=== PATIENT | male | born 1965 | race Caucasian/White ===

== ENCOUNTER 2016-09-20 19:17 | Emergency (ER) | payer OTHER ==
[2016-09-20] MEDS ORDERED: NS 0.9% 1000 ML* 1,000 ML IV ONE (19:52)
[2016-09-20 20:14] LABS: Hematocrit 43 % (42-52); Hemoglobin 14.6 g/dl (14.0-18.0); Mean Corpuscular HGB Conc 34 g/dl (31-36); Mean Corpuscular Hemoglobin 29 pg (27-31); Mean Corpuscular Volume 86 fL (80-94); Mean Platelet Volume 8 um3 (7.4-10.4); Red Blood Count 5.05 10^6/ul (4.0-5.4); Red Cell Distribution Width 14 % (10.5-15); White Blood Count 8.4 10^3/ul (3.5-10.8)
--- NOTE | 2016-09-20 20:29 | RAD ---
INDICATION: Diaphoresis and left arm tingling COMPARISON: None. TECHNIQUE: Single AP portable view of the chest was obtained. FINDINGS: Image quality is compromised due to the relative inferiority of a portable chest x-ray. The heart and mediastinum exhibit normal size and contour. The lungs are grossly clear. There is no evidence of a large pleural effusion. Visualized bones are normal for the patient's age. IMPRESSION: No radiographic evidence for acute cardiopulmonary abnormality on this portable chest x-ray.
[2016-09-20 20:31] LABS: Albumin 4.1 g/dL (3.2-5.2); BUN/Creatinine Ratio 12.4 (8-20); C Reactive Protein 7.19 mg/L (< 5.00); EGFR African American 88.3 (>60); EGFR Non-African American 68.7 (>60); Globulin 2.9 g/dL (2-4); Magnesium 1.8 mg/dL (1.9-2.7); Total Bilirubin 0.4 mg/dL (0.2-1.0)
[2016-09-20 20:58] LABS: TSH (Thyroid Stimulating Horm) 1.79 mcIU/mL (0.34-5.60)
--- NOTE | 2016-09-20 21:51 | RAD ---
INDICATION: Headache COMPARISON: None. TECHNIQUE: Contiguous axial sections of the brain were obtained from the skull base to the vertex without contrast. FINDINGS: The ventricles, cisterns and sulci are within normal limits. The kong-white matter differentiation is adequately maintained and there is no sulcal effacement. No significant focal abnormality or mass effect is present. There is no evidence for intracranial hemorrhage. No significant focal osseous abnormality is present. The visualized portion of the paranasal sinuses and mastoid air cells appear clear. IMPRESSION: Normal CT of the brain.
--- NOTE | 2016-09-20 22:45 | ED ---
Abhishek Duran Billy, scribed for Srikanth Pimentel MD on 09/20/16 at 1948 . Headache - HPI Summary HPI Summary: Patient is a 51 year-old male coming to [facility] for evaluation of a sharp, left- sided headache. He states that his headache started after carrying some heavy boxes up a flight of stairs, and has not subsided since. It is intermittent but never completely resolves, and has in fact worsened in the last few days. Pain severity is 6/10 at this time. He denies any changes in mentation, weakness, difficulty with speech, or facial droop. Denies any neck pain. He has had some diaphoresis but denies chest pain, nausea, or shortness of breath. While he was at dinner today at 1830, he felt a "strange tingling" in his left arm and left leg. - History Of Current Complaint Chief Complaint: EDHeadache Stated Complaint: WORSENING HEADACHE Time Seen by Provider: 09/20/16 19:39 Hx Obtained From: Patient Onset/Duration: Gradual Onset, Started days ago Initially Headache Was: Moderate Currently Pain Is: Moderate Timing: Intermittent, Lasting: Character: Sharp Location of Headache: Frontal Aggravating Factor: Nothing Allevating Factors: Nothing - Allergies/Home Medications Allergies/Adverse Reactions: Allergies Allergy/AdvReac Type Severity Reaction Status Date / Time Penicillins [PCN] Allergy Difficulty Verified 09/20/16 20:11 Breathing PMH/Surg Hx/FS Hx/Imm Hx Endocrine/Hematology History: Reports: Hx Thyroid Disease - hypothyroidism Denies: Hx Diabetes Cardiovascular History: Denies: Hx Hypertension GI History: Reports: Hx Irritable Bowel Psychiatric History: Reports: Hx Anxiety Infectious Disease History: Denies: Traveled Outside the [place] in Last 30 Days - Family History Family History: Brother with CVA - Social History Alcohol Use: Rare Hx Substance Use: No Substance Use Type: Reports: None Review of Systems Positive: Skin Diaphoresis Negative: Photophobia, Blurred Vision, Diplopia Negative: Chest Pain Negative: Shortness Of Breath Negative: Nausea Negative: Myalgia, Edema Positive: Headache, Paresthesia. Negative: Weakness, Numbness, Slurred Speech All Other Systems Reviewed And Are Negative: Yes Physical Exam Triage Information Reviewed: Yes Vital Signs On Initial Exam: Initial Vitals Temp Pulse Resp BP Pulse Ox 98.2 F 78 18 142/90 99 09/20/16 19:29 09/20/16 19:29 09/20/16 19:29 09/20/16 19:29 09/20/16 19:29 Vital Signs Reviewed: Yes Appearance: Positive: Well-Appearing, No Pain Distress Skin: Positive: Warm, Skin Color Reflects Adequate Perfusion, Dry Head/Face: Positive: Normal Head/Face Inspection Eyes: Positive: EOMI, RADHA ENT: Positive: Normal ENT inspection Neck: Positive: Supple, Nontender Respiratory/Lung Sounds: Positive: Clear to Auscultation, Breath Sounds Present Cardiovascular: Positive: RRR Abdomen Description: Positive: Nontender, Soft Musculoskeletal: Positive: Normal, Strength/ROM Intact Neurological: Positive: Normal, Sensory/Motor Intact, Alert, Oriented to Person Place, Time Psychiatric: Positive: Anxious Diagnostics - Vital Signs Vital Signs Temp Pulse Resp BP Pulse Ox 09/20/16 19:29 98.2 F 78 18 142/90 99 - Laboratory Lab Results: Lab Results 09/20/16 09/20/16 09/20/16 Range/Units 20:04 20:04 20:04 WBC 8.4 (3.5-10.8) 10^3/ul RBC 5.05 (4.0-5.4) 10^6/ul Hgb 14.6 (14.0-18.0) g/dl Hct 43 (42-52) % MCV 86 (80-94) fL MCH 29 (27-31) pg MCHC 34 (31-36) g/dl RDW 14 (10.5-15) % Plt Count 228 (150-450) 10^3/ul MPV 8 (7.4-10.4) um3 Neut % (Auto) 68.1 (38-83) % Lymph % (Auto) 23.2 L (25-47) % Lancaster % (Auto) 4.8 (1-9) % Eos % (Auto) 2.7 (0-6) % Baso % (Auto) 1.2 (0-2) % Absolute Neuts (auto) 5.7 (1.5-7.7) 10^3/ul Absolute Lymphs (auto) 2.0 (1.0-4.8) 10^3/ul Absolute Monos (auto) 0.4 (0-0.8) 10^3/ul Absolute Eos (auto) 0.2 (0-0.6) 10^3/ul Absolute Basos (auto) 0.1 (0-0.2) 10^3/ul Absolute Nucleated RBC 0.01 10^3/ul Nucleated RBC % 0.1 INR (Anticoag Therapy) 0.92 (0.89-1.11) APTT 30.9 (26.0-36.3) seconds D-Dimer, Quantitative < 200 (Less Than 230) ng/mL Sodium 136 (133-145) mmol/L Potassium 4.0 (3.5-5.0) mmol/L Chloride 105 (101-111) mmol/L Carbon Dioxide 23 (22-32) mmol/L Anion Gap 8 (2-11) mmol/L BUN 14 (6-24) mg/dL Creatinine 1.13 (0.67-1.17) mg/dL Est GFR ( Amer) 88.3 (>60) Est GFR (Non-Af Amer) 68.7 (>60) BUN/Creatinine Ratio 12.4 (8-20) Glucose 114 H (70-100) mg/dL Lactic Acid (0.5-2.0) mmol/L Calcium 9.0 (8.6-10.3) mg/dL Magnesium 1.8 L (1.9-2.7) mg/dL Total Bilirubin 0.40 (0.2-1.0) mg/dL AST 32 (13-39) U/L ALT 37 (7-52) U/L Alkaline Phosphatase 45 (34-104) U/L Total Creatine Kinase 299 H (10-223) U/L CK-MB (CK-2) 6.5 H (0.6-6.3) ng/mL Troponin I 0.00 (<0.04) ng/mL C-Reactive Protein 7.19 H (< 5.00) mg/L Total Protein 7.0 (6.4-8.9) g/dL Albumin 4.1 (3.2-5.2) g/dL Globulin 2.9 (2-4) g/dL Albumin/Globulin Ratio 1.4 (1-3) Lipase 10 L (11.0-82.0) U/L TSH 1.79 (0.34-5.60) mcIU/mL 09/20/16 Range/Units 20:04 WBC (3.5-10.8) 10^3/ul RBC (4.0-5.4) 10^6/ul Hgb (14.0-18.0) g/dl Hct (42-52) % MCV (80-94) fL MCH (27-31) pg MCHC (31-36) g/dl RDW (10.5-15) % Plt Count (150-450) 10^3/ul MPV (7.4-10.4) um3 Neut % (Auto) (38-83) % Lymph % (Auto) (25-47) % Lancaster % (Auto) (1-9) % Eos % (Auto) (0-6) % Baso % (Auto) (0-2) % Absolute Neuts (auto) (1.5-7.7) 10^3/ul Absolute Lymphs (auto) (1.0-4.8) 10^3/ul Absolute Monos (auto) (0-0.8) 10^3/ul Absolute Eos (auto) (0-0.6) 10^3/ul Absolute Basos (auto) (0-0.2) 10^3/ul Absolute Nucleated RBC 10^3/ul Nucleated RBC % INR (Anticoag Therapy) (0.89-1.11) APTT (26.0-36.3) seconds D-Dimer, Quantitative (Less Than 230) ng/mL Sodium (133-145) mmol/L Potassium (3.5-5.0) mmol/L Chloride (101-111) mmol/L Carbon Dioxide (22-32) mmol/L Anion Gap (2-11) mmol/L BUN (6-24) mg/dL Creatinine (0.67-1.17) mg/dL Est GFR ( Amer) (>60) Est GFR (Non-Af Amer) (>60) BUN/Creatinine Ratio (8-20) Glucose (70-100) mg/dL Lactic Acid 1.1 (0.5-2.0) mmol/L Calcium (8.6-10.3) mg/dL Magnesium (1.9-2.7) mg/dL Total Bilirubin (0.2-1.0) mg/dL AST (13-39) U/L ALT (7-52) U/L Alkaline Phosphatase (34-104) U/L Total Creatine Kinase (10-223) U/L CK-MB (CK-2) (0.6-6.3) ng/mL Troponin I (<0.04) ng/mL C-Reactive Protein (< 5.00) mg/L Total Protein (6.4-8.9) g/dL Albumin (3.2-5.2) g/dL Globulin (2-4) g/dL Albumin/Globulin Ratio (1-3) Lipase (11.0-82.0) U/L TSH (0.34-5.60) mcIU/mL Result Diagrams: 09/20/16 20:04 09/20/16 20:04 Lab Statement: Any lab studies that have been ordered have been reviewed, and results considered in the medical decision making process. - Radiology CXR Xray Interpretation: No Acute Changes Radiology Interpretation Completed By: Radiologist - CT Brain CT Interpretation: No Acute Changes CT Interpretation Completed By: Radiologist - EKG 2058 Cardiac Rate: NL - 83 EKG Rhythm: Sinus Rhythm Ectopy: None EKG Interpretation: Minimal ST elevation in the anterior leads with concave-up ST segments National Institutes Of Health - NIH Scale Level of Consciousness: Alert/Keenly Responsive Ask Patient the Month and His/Her Age: Both Correct Ask Pt to Open/Close Eyes and Loftsman/Woman/Release Non-Paretic Hand: Both Correctly Best Gaze (Only Horizontal Eye Movement): Normal Visual Field Testing: No Visual Loss Facial Paresis-Pt to Smile & Close Eyes or Grimace Symmetry: Normal/Symmetrical Motor Function - Right Arm: No Drift-Holds 10 Seconds Motor Function - Left Arm: No Drift-Holds 10 Seconds Motor Function - Right Leg: No Drift-Holds 10 Seconds Motor Function - Left Leg: No Drift-Holds 10 Seconds Limb Ataxia-Must be out of Proportion to Weakness Present: Absent Sensory (Use Pinprick to Test Arms/Legs/Trunk/Face): Normal Best Language (Describe Picture, Name Items): No Aphasia Dysarthria (Read Several Words): Normal Extinction and Inattention: No Abnormality Total Score: 0 Headache Course/Dx - Course Course Of Treatment: NO CRITICAL CARE TIME Assessment/Plan: DISCUSSED WITH NEUROLOGY, DR PAINTING. NO CVA FINDINGS IN ED. CT BRAIN NORMAL. AMBULATED IN ED WITHOUT NEUROLOGIC DEFICT. NO C/O CHEST PAIN, DID HAVE LEFT ARM AND LEG TIGHTNESS. DUE TO THE ARM AND LEG TIGHTNESS, WILL RECHECK A 3 HOUR TROPONIN. TERESE AMBULATED IN THE ED WITHOUT CHEST PAIN. DISPOSITION PENDING AT SHIFT CHANGE. STABLE IN ED. - Diagnoses Provider Diagnoses: Headache, Tightness sensation Discharge - Discharge Plan Condition: Stable Disposition: HOME Patient Education Materials: General Headache (ED) Referrals: Saray Plaza MD [Primary Care Provider] - Additional Instructions: FOLLOW UP WITH YOUR DOCTOR, 09/22/16, SCHEDULED FOR YOUR HEADACHE AND LEFT ARM AND LEG SENSATION. RETURN TO THE EMERGENCY DEPARTMENT FOR ANY WORSENING OF YOUR CONDITION; CHEST PAIN, SHORTNESS OF BREATH, WEAKNESS, NUMBNESS, WORSENING OR PERSISTENT HEADACHE OR QUESTIONS OR CONCERNS. The documentation as recorded by the Abhishek montaño Billy accurately reflects the service I personally performed and the decisions made by me, Srikanth Pimentel MD.
[2016-09-21 00:05] VITALS: BP 136/91
== END 2016-09-21 00:04 | disposition home or self-care (01) ==
LOC: ED 19:17
DX: R51 Headache (principal); E03.9 Hypothyroidism, unspecified; M79.602 Pain in left arm; M79.605 Pain in left leg
CPT/HCPCS: 36415; 70450; 71010; 80053; 82550; 82553; 83605; 83690; 83735; 84443; 84484; 85025; 85379; 85610; 85730; 86140; 93005; 96360; 96361; 99283

== ENCOUNTER 2018-06-22 13:30 | Emergency (ER) | payer OTHER ==
--- OUTSIDE RECORDS SUMMARY | 2018-06-22 13:46 | XMS REPORT | Continuity of Care Document ---
:1965 External Reference #:[id number] Author Name Alondra Marino PA-C Address [address] [place] [address] Road Unavailable [place] [id number] Care Team Providers Name Role Phone Stacey Graves FNP-DEBRA Care Team Information Gas Reverser Unavailable Radha Butler DO Primary Care Physician Unavailable Payers Date Identification Numbers Payment Provider Subscriber Policy Number: [id number] [facility] Bia Herrera PayID: [id number] [address] [place] [address] Advance Directives Description No Information Available Problems Date Description Provider Status Onset: 06/15/2018 ESR raised Alondra Marino PA-C Active Onset: 06/15/2018 C-reactive protein abnormal Alondra Marino PA-C Active Onset: 06/15/2018 Weight decreased Alondra Marino PA-C Active Onset: 06/15/2018 Diarrhea Alondra Marino PA-C Active Onset: 06/15/2018 Generalized abdominal pain Alondra Marino PA-C Active Onset: 01/31/2018 Irritable bowel syndrome with Alondra Marino PA-C Active diarrhea Onset: 01/31/2018 Gastroesophageal reflux disease Alondra Marino PA-C Active Family History Date Family Member(s) Observation Comments Father Lung cancer Father due to Cancer in the lungs () Social History Type Date Description Comments Sex Unknown Tobacco Use Start: Unknown Patient has never smoked Smoking Status Reviewed: 06/15/18 Patient has never smoked Allergies, Adverse Reactions, Alerts Date Description Reaction Status Severity Comments 08/24/2016 Penicillin Active Medications Medication Date Status Form Strength Qnty SIG Indications Ordering Provider Pantoprazole 12/29/ Active Tablets DR 40mg 30tab 1 by Alondra Sodium 2017 s mouth L. every day CALVIN Marino Clonazepam / Active Tablets 0.5mg Unknown 0000 Fluticasone / Active Suspension 50mcg/Act Unknown Propionate 0000 Levothyroxine / Active Tablets 125mcg Unknown Sodium 0000 Tamsulosin HCL / Active Capsules 0.4mg Husseini, 0000 MD Aries Fexofenadine / Active Tablets 180mg Wood,Melody HCL 0000 sherin,CISTERN ROOM OPERATOR Nortriptyline / Active Capsules 10mg Aittama,A HCL 0000 my,MANAGER [employer]-BC Imodium A-D / Active Tablets 2mg one by Unknown 0000 mouth three times a day as needed Claravis / Active Capsules 40mg 2 Daily Unknown 0000 Omeprazole 12/15/ Hx Capsules DR 40mg 60cap one Jennifer 2016 - s capsule Boncarbo, 12/29/ by mouth MANAGER [employer]-C 2016 twice a day Colyte-Flavor 08/24/ Hx Solution Rec 240gm 4000m As K21.9 Jnenifer Packs 2016 - l directed Boncarbo, 08/27/ MANAGER [employer]-C 2016 Hyoscyamine 08/24/ Hx Tablets ER 0.375mg 60tab take one R19.4 Jennifer Sulfate ER 2016 - 12HR s by mouth Boncarbo, 01/31/ twice MANAGER [employer]-C 2017 daily Trazodone HCL / Hx Tablets 50mg Unknown 0000 - 2017 Omeprazole / Hx Capsules DR 20mg Pavel,Melody 0000 - sherin,CISTERN ROOM OPERATOR 2017 Wellbutrin XL / Hx Tablets ER 150mg 1 by Unknown 0000 - 24HR mouth 06/15/ every day 2019 Doxycycline / Hx Tablets 50mg take one Unknown Monohydrate 0000 - tablet by 06/15/ mouth 2018 once to twice a day as directed Immunizations Description No Information Available Vital Signs Date Vital Result Comment 06/15/2018 2:25pm Height 66 inches 5'6" Weight 210.00 lb BMI (Body Mass Index) 33.9 kg/m2 01/31/2018 3:04pm Height 66 inches 5'6" Weight 220.00 lb BP Systolic 133 mmHg BP Diastolic 93 mmHg Heart Rate 89 /min BMI (Body Mass Index) 35.5 kg/m2 01/21/2017 3:29pm Height 66 inches 5'6" Weight 226.00 lb BP Systolic 136 mmHg BP Diastolic 90 mmHg BMI (Body Mass Index) 36.5 kg/m2 08/24/2016 3:21pm Height 66 inches 5'6" Weight 238.00 lb BP Systolic 142 mmHg BP Diastolic 80 mmHg BMI (Body Mass Index) 38.4 kg/m2 Results Test Date Facility Test Result H/L Range Note Laboratory test 12/29/2016 [facility] Surgical SEE RESULT 1 finding Interface Order BELOW Laboratory test 12/29/2016 [facility] Clotest SEE RESULT 2 finding BELOW CBC W/Auto 07/22/2016 [facility] White Blood <pending> Differential(!) Count Ser Auto CNT RBC Red Blood Count <pending> Hemoglobin Blood <pending> Hematocrit <pending> MCV (Corpuscular Volume) <pending> MCH (Corpuscular Hemoglobin) <pending> MCHC (Corpuscular Hemog Conc) <pending> RDW <pending> Platelet Count Blood Auto CNT <pending> MPV <pending> Lymph% <pending> Walton% <pending> Neutrophil % <pending> Absolute Lymphocytes <pending> Absolute Monocytes <pending> Absolute Neutrophils <pending> 1 SEE RESULT BELOW Name: BIA HERRERA : [address]: Justin Messina MD Acct: [id number] Unit: [id number] AGE: 51 Location: ENDO Re12/29/16 SEX: M Status: DEP REF SPEC: [id number] STONEY: 12/29/16- SUBM DR: Justin Messina MD REQ: [id number] RECD: 12/29/16142 STATUS: TAE JONES DR: Stacey Graves CISTERN ROOM OPERATOR _ ORDERED: LEVEL 4/3 FINAL DIAGNOSIS 1. Colon, right, biopsy: -- Benign colonic mucosa with no significant pathologic abnormalities. -- No evidence of microscopic colitis. 2. Colon, mid transverse, biopsy: -- Tubular adenoma. -- No high grade dysplasia or malignancy. 3. Colon, descending, biopsy: -- Benign colonic mucosa with no significant pathologic abnormalities. -- No evidence of microscopic colitis. CLINICAL HISTORY Irritable bowel syndrome - regular diarrhea, three weeks entire stomach infra umbilical - one emesis's - 4 days POST-OPERATIVE DIAGNOSIS Larynx - normal, Esophagus - normal, Esophagogastric 39, Stomach - normal, Duodenum - normal, Colon - to cecum with ease, ileocecal resection to terminal ileum - normal, 20 cm. one polyp mid transverse colon - 13 cm, diverticulosis sigmoid. Conclusion - Normal, gastroesophageal reflux disease change to protonic, diverticulosis, transverse polyp, irritable bowel syndrome, follow up abdominal pain. GROSS DESCRIPTION 1. The specimen is received in formalin labeled, Right Colon Biopsies, and consists of two berg-pink irregular soft tissue fragments measuring 0.3 x 0.2 x 0.1 cm and 0.4 x 0.4 x 0.1 cm which are submitted entirely in one cassette. 2. The specimen is received in formalin labeled, Mid Transverse Colon Polyp , and consists CONTINUED ON NEXT PAGE * ML=Testing performed at Main Lab DEPARTMENT OF PATHOLOGY, [address] [place] [address] Prashanth Maldonado M.D. Director [facility] # [id number] RUN DATE: 12/30/16 [facility] LAB LIVE PAGE 2 Patient: BIA HERRERA [id number] (Continued) GROSS DESCRIPTION (Continued) GROSS DESCRIPTION (Continued) of a 1.2 x 1.0 x 0.2 cm aggregate of berg-pink irregular to polypoid soft tissue fragments which is submitted entirely in one cassette. 3. The specimen is received in formalin labeled, Descending Colon Biopsies , and consists of a 0.3 x 0.3 x 0.2 cm berg-pink irregular soft tissue fragment. No other tissue is identified within the container. Entirely submitted, one cassette. Signed (signature on file) Saray Cumimngs MD 1430 END OF REPORT * ML=Testing performed at Main Lab DEPARTMENT OF PATHOLOGY, [address] [place] [address] Prashanth Maldonado M.D. Director [facility] # [id number] 2 SEE RESULT BELOW Name: BIA HERRERA : [address]: Justin Messina MD Acct: [id number] Unit: [id number] AGE: 51 Location: ENDO Re12/29/16 SEX: M Status: REG REF SPEC: [id number] STONEY: 12/29/[address] [facility] [address]: Justin Messina MD REQ: [id number] RECD: 12/29/16 STATUS: JUAN JOSE JONES DR: Stacey Arroyo MD _ SOURCE: GAS ANTRUM SPDESC: ORDERED: Clotest Procedure Result Reported Site Clotest Final 12/30/16- 0751 ML Clotest Negative * ML - MAIN LAB (PSC1) . END OF REPORT * ML=Testing performed at Main Lab DEPARTMENT OF PATHOLOGY, [address] [place] [address] Prashanth Maldonado M.D. Director [facility] # [id number] Procedures Date Code Description Status 12/29/2016 74425 Moderate Sedation Services; Same Phys Each Additional Completed 15 Mins 12/29/2016 57197 Moderate Sedation Services; Same Phys Each Additional Completed 15 Mins 12/29/2016 30193 Moderate Sedation Services; Same Phys Intl 15 Mins; PT Completed >=5 Years 12/29/2016 49205 Colonoscopy W/ Snare RM Of Polyp/Tumor/Lesion Completed 12/29/2016 25661 Colonscopy+Biopsy Completed 12/29/2016 86165 EGD+Biopsy Single Or Multiple Completed 10/15/2006 81825091 Colonoscopy Completed 02/15/2004 40508752 Flexible Sigmoidoscopy Completed Encounters Type Date Location Provider Dx Diagnosis Office Visit 01/31/2018 G[facility]enter[facility] Alondra Vora K21.9 [facility]astro- esophageal 3[facility] reflux disease without esophagitis K58.0 Irritable bowel syndrome with [facility] K[facility]9 [facility] 3:[facility], reflux disease MANAGER SUPPLY-C without esophagitis K58.0 Irritable bowel syndrome with diarrhea Office 08/24/2016 [facility]enter[facility] Jennifer K21.9 Gastro-esophageal Visit 3:45p [facility], reflux disease MANAGER [employer]-C without esophagitis R10.13 Epigastric pain K58.0 Irritable bowel syndrome with diarrhea R19.4 Change in bowel habit Z12.11 Encounter for screening for malignant neoplasm of colon Plan of Treatment Future Appointment(s):01/31/2019 3:15 pm - Alond[facility]-C [facility]06/15/2018 - Alondra L. Swanstrom, PA- CK21.9 Gastro-esophageal reflux disease without muzhanlyrhiN99.84 Generalized abdominal painNew Xrays:MR Enterography, Ordered: 06/15/18R19.7 Diarrhea, unspecifiedNew Xrays:MR Enterography, Ordered: 06/15/18R63.4 Abnormal weight lossR79.82 Elevated C-reactive protein (CRP)New Xrays:MR Enterography, Ordered: 06/15/18R70.0 Elevated erythrocyte sedimentation rate
--- NOTE | 2018-06-22 15:35 | ED ---
Abdominal Pain/Male - HPI Summary HPI Summary: Pt is a 53 y/o male who presents to the ED c/o constant abdominal pain. 1 month ago he had severe diarrhea without N/V, and initially thought he had food poisoning. Stool samples collected by his PCP revealed no parasites or bacteria. Pt then started to have worsening abdominal pain. He went to the GI and had both a colonoscopy and upper endoscopy. A polyp was removed and was benign. Pts CRP has been elevated for the past year and his PCP has been unsure why. He has an appointment scheduled with a planner. A PA at this GIs office believes the CRP and the abdominal pain point to an inflammatory bowel disease. He has a CT set up, however this past week the abdominal pain has been worsening. Pt rates the current pain as an 8/10 in severity and describes it as the worst pain of my life. Nothing makes the pain worse or better. The pain wakes him up from sleep. He denies any fever, chills, or hematochezia. His last BM was this morning. PMHx IBS, but denies hx of diverticulosis or diverticulitis. No hx of abdominal surgeries. - History of Current Complaint Chief Complaint: EDAbdPain Stated Complaint: ABD PAIN Time Seen by Provider: 06/22/18 15:30 Hx Obtained From: Patient Onset/Duration: Gradual Onset, Lasting Weeks - 1 month, Worse Since Timing: Constant Severity Currently: Severe Pain Intensity: 8 Pain Scale Used: 0-10 Numeric Location: Discrete At: LUQ, Discrete At: LLQ, Suprapubic Radiates: No Aggravating Factor(s): Nothing Alleviating Factor(s): Nothing Associated Signs And Symptoms: Positive: Diarrhea. Negative: Fever, Nausea, Vomiting - Allergies/Home Medications Allergies/Adverse Reactions: Allergies Allergy/AdvReac Type Severity Reaction Status Date / Time MS Penicillins [PCN] Allergy Difficulty Verified 09/20/16 20:11 Breathing PMH/Surg Hx/FS Hx/Imm Hx Endocrine/Hematology History: Reports: Hx Thyroid Disease - hypothyroidism Denies: Hx Diabetes Cardiovascular History: Denies: Hx Hypertension GI History: Reports: Hx Irritable Bowel Denies: Hx Diverticulosis Psychiatric History: Reports: Hx Anxiety Infectious Disease History: No Infectious Disease History: Denies: Traveled Outside the [place] in Last 30 Days - Family History Known Family History: Positive: Other - diverticulosis, Brother with CVA, NEGATIVE: crohn's, colitis - Social History Alcohol Use: Rare Hx Substance Use: No Substance Use Type: Reports: None Hx Tobacco Use: No Smoking Status (MU): Never Smoked Tobacco Review of Systems Negative: Fever, Chills Positive: Abdominal Pain, Diarrhea. Negative: Vomiting, Nausea, Other - bloody stool All Other Systems Reviewed And Are Negative: Yes Physical Exam - Summary Physical Exam Summary: GENERAL: Patient is a well-developed and nourished M who is lying comfortable in the stretcher. Patient is not in any acute respiratory distress. HEAD AND FACE: Normocephalic EYES: PERRLA, EOMI x 2. EARS: Hearing grossly intact. MOUTH: Oropharynx within normal limits. NECK: Supple, trachea is midline, no adenopathy, no JVD, no carotid bruit. CHEST: Symmetric, no tenderness at palpation LUNGS: Clear to auscultation bilaterally. No wheezing or crackles. CVS: Regular rate and rhythm, S1 and S2 present, no murmurs or gallops appreciated. ABDOMEN: Soft. Bowel sounds are normal. No abdominal abnormal pulsations. Tenderness to palpation of lower abdomen and suprapubic region. EXTREMITIES: Full ROM in all major joints, no edema, no cyanosis or clubbing. NEURO: Alert and oriented x 3. No acute neurological deficits. Speech is normal and follows commands. SKIN: Dry and warm Triage Information Reviewed: Yes Vital Signs On Initial Exam: Initial Vitals Temp Pulse Resp BP Pulse Ox 97.0 F 85 18 134/94 98 06/22/18 13:32 06/22/18 13:32 06/22/18 13:32 06/22/18 13:32 06/22/18 13:32 Vital Signs Reviewed: Yes Diagnostics - Vital Signs Vital Signs Temp Pulse Resp BP Pulse Ox 06/22/18 13:32 97.0 F 85 18 134/94 98 - Laboratory Result Diagrams: 06/22/18 15:49 06/22/18 15:49 Lab Statement: Any lab studies that have been ordered have been reviewed, and results considered in the medical decision making process. Abdominal Pain Fem Course/Dx - Course Course Of Treatment: Pt is a 53 y/o male who presents to the ED c/o abdominal pain and diarrhea for one month. PMHx IBS, and he is getting worked up for possible Crohns. He went to the GI and had both a colonoscopy and upper endoscopy, and a polyp was removed that was benign. Pt will be signed out to Dr. Burk, pending CT A/P. Final dx is abdominal pain. - Diagnoses Provider Diagnoses: Abdominal pain Discharge - Sign-Out/Discharge Documenting (check all that apply): Sign-Out Patient Signing out patient TO: Mustapha Burk Patient Received Moderate/Deep Sedation with Procedure: No - Discharge Plan Referrals: Radha Butler DO [Primary Care Provider] - - Attestation Statements Document Initiated by Scribe: Yes Documenting Scribe: Randee Butler Provider For Whom Scribe is Documenting (Include Credential): Imelda Odonnell MD Scribe Attestation: Randee Duran scribed for Imelda Odonnell MD on 06/22/18 at 1846. Scribe Documentation Reviewed: Yes Provider Attestation: The documentation as recorded by the tyloribeRandee accurately reflects the service I personally performed and the decisions made by , Imelda Odonnell MD Status of Scribe Document: Viewed
[2018-06-22] MEDS ORDERED: Ketorolac INJ* 30 MG/ML 1 ML VIAL IV PUSH ONE (16:00)
[2018-06-22] MEDS ORDERED: Metoclopramide IV* 5 MG/ML 2 ML VIAL IV ONE (16:00)
[2018-06-22] MEDS ORDERED: NS 0.9% 1000 ML** 1,000 ML IV ONE (16:00)
[2018-06-22 16:13] LABS: ABS Basophils 0.1 10^3/ul (0-0.2); ABS Eosinophils 0.2 10^3/ul (0-0.6); ABS Monocytes 0.5 10^3/ul (0-0.8); ABS Neutrophils 5.8 10^3/ul (1.5-7.7); ABS Nucleated RBC 0 10^3/ul; Eosinophil % 1.8 %; Hematocrit 45 % (42-52); Hemoglobin 15.2 g/dl (14.0-18.0); Lymphocyte % 23.3 %; Mean Corpuscular HGB Conc 34 g/dl (31-36); Mean Corpuscular Hemoglobin 29 pg (27-31); Mean Corpuscular Volume 87 fL (80-94); Mean Platelet Volume 8.6 fL (7.4-10.4); Nucleated Red Blood Cells % 0; Platelet Count 284 10^3/ul (150-450); Red Blood Count 5.18 10^6/ul (4.00-5.40); Red Cell Distribution Width 13 % (10.5-15); White Blood Count 8.4 10^3/ul (3.5-10.8)
[2018-06-22 16:16] LABS: Urine Appearance Clear; Urine Bilirubin Negative (Negative); Urine Blood Negative (Negative); Urine Color Yellow; Urine Glucose Negative (Negative); Urine Ketones Negative (Negative); Urine Nitrite Negative (Negative); Urine Protein Negative (Negative); Urine Specific Gravity 1.008 (1.010-1.030); Urine Urobilinogen Negative (Negative)
[2018-06-22 16:27] LABS: ALT 25 U/L (7-52); AST 19 U/L (13-39); Albumin 4.9 g/dL (3.2-5.2); Albumin/Globulin Ratio 1.7 (1-3); Alkaline Phosphatase 52 U/L (34-104); Amylase 22 U/L (29-103); Anion Gap 6 mmol/L (2-11); BUN/Creatinine Ratio 15.3 (8-20); Blood Urea Nitrogen 17 mg/dL (6-24); C Reactive Protein 6.61 mg/L (<8.01); CO2 Carbon Dioxide 31 mmol/L (22-32); Calcium 9.8 mg/dL (8.6-10.3); Chloride 102 mmol/L (101-111); EGFR African American 84.2 (>60); EGFR Non-African American 69.6 (>60); Globulin 2.9 g/dL (2-4); Glucose 88 mg/dL (70-100); Potassium 4.3 mmol/L (3.5-5.0); Sodium 139 mmol/L (135-145); Total Protein 7.8 g/dL (6.4-8.9)
[2018-06-22] MEDS ORDERED: Iohexol 300* (CONTRAST) 10 ML SDV IV ONE (17:02)
--- NOTE | 2018-06-22 19:13 | ED ---
Progress - Progress Note Progress Note: This patient was signed out to Dr. Burk from Dr. Odonnell upon provider shift change pending CT abd/pelvis results and disposition. - Results/Orders Results/Orders: CT Abd/Pelvis: Interpreted by radiologist. impression: no CT findings to correlate with patients symptomatology Dr. Burk has reviewed this report. Course/Dx - Course Course Of Treatment: This patient was signed out to Dr. Burk from Dr. Odonnell upon provider shift change pending CT abd/pelvis results. CT Abd/Pelvis reveals no CT findings to correlate with patients symptomatology. Dr. Burk has reviewed this report. Patient will be discharged home with follow up from PCP. Dx gastroenteritis. Patient is agreeable with this plan. - Diagnoses Provider Diagnoses: Gastroenteritis Discharge - Sign-Out/Discharge Documenting (check all that apply): Patient Departure - discharge, Receiving Sign-Out Receiving patient FROM: Imelda Odonnell Patient Received Moderate/Deep Sedation with Procedure: No - Discharge Plan Condition: Stable Disposition: HOME Patient Education Materials: Gastroenteritis (ED) Referrals: Radha Butler DO [Primary Care Provider] - Additional Instructions: Follow up with your primary care physician in 2-3 days. Return to the emergency department with any new or worsening symptoms. - Attestation Statements Document Initiated by Scribe: Yes Documenting Scribe: Saray Shipley Provider For Whom Zohra is Documenting (Include Credential): Mustapha Burk MD Scribe Attestation: Saray Duran, scribed for Mustapha Burk MD on 06/22/18 at 1958. Status of Scribe Document: Ready
[2018-06-22 20:24] VITALS: BP 126/82
== END 2018-06-22 20:10 | disposition home or self-care (01) ==
LOC: ED 13:30
DX: K52.9 Noninfective gastroenteritis and colitis, unspecified (principal); R10.12 Left upper quadrant pain; R19.7 Diarrhea, unspecified; Z88.0 Allergy status to penicillin
CPT/HCPCS: 36415; 74177; 80053; 81003; 82140; 82150; 83605; 83690; 83735; 85025; 86140; 96361; 96374; 96375; 99283; J1885; J2765; Q9967